=== PATIENT | male | born 1985 | race African-American/Black ===

== ENCOUNTER 2019-04-29 18:49 | Emergency (ER) | payer OTHER ==
[2019-04-29] MEDS ORDERED: Diphtheria,Pertussis(Acell),Tetanus Vaccine 0.5 ML Syringe IM ONE (20:14)
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
== END 2019-04-29 20:53 | disposition home or self-care (01) ==
LOC: JD.ED 18:49
DX: S80.812A Abrasion, left lower leg, initial encounter (principal); I10 Essential (primary) hypertension; E11.9 Type 2 diabetes mellitus without complications; Z79.899 Other long term (current) drug therapy; Z23 Encounter for immunization; W26.8XXA Contact with other sharp object(s), not elsewhere classified, initial encounter
CPT/HCPCS: 90471; 90700; 99282; 99283